=== PATIENT | female | born 1985 ===

== ENCOUNTER 2017-01-23 00:20 | Inpatient (IN) | payer BC, OTHER ==
[2017-01-23 00:56] VITALS: BMI 23.7
[2017-01-23 02:43] VITALS: O2SAT 100
[2017-01-23 02:46] LABS: BASO % 0.4 % (0.0-2.0); EOS # 0.3 K/uL (0.0-0.7); HEMATOCRIT 37.6 % (34.0-47.0); LYMPH # 1.6 K/uL (1.0-4.3); LYMPH % 19.1 % (20.0-40.0); MEAN CELL VOLUME 91.1 fl (81.0-99.0); MEAN CORPUSCULAR HEMOGLOBIN 31.6 pg (27.0-31.0); MEAN CORPUSCULAR HGB CONC 34.7 g/dL (33.0-37.0); MEAN PLATELET VOLUME 9.6 fl (7.2-11.7); MONO # 0.6 K/uL (0.0-0.8); MONO % 6.9 % (0.0-10.0); NEUT % 70.6 % (50.0-75.0); NRBC % 0.1 % (0.0-0.0); RED CELL DISTRIBUTION WIDTH 12.9 % (11.5-14.5); WHITE BLOOD COUNT 8.4 K/uL (4.8-10.8)
[2017-01-23] MEDS: Lactated Ringer's 1,000 ML IV SCH ×2 (02:51→03:15)
[2017-01-23] MEDS ORDERED: Oxytocin 30 units/LR 500ML 30 U/500 ML BAG IV ONE (03:08)
[2017-01-23] MEDS ORDERED: Lidocaine 1% Inj (20ml) ONE (03:08)
[2017-01-23] MEDS ORDERED: Fentanyl/Bupivacaine HCl 250 ML EPI ONE (03:21)
[2017-01-23] MEDS ORDERED: Lactated Ringer's 1,000 ML IV SCH (04:15)
--- NOTE | 2017-01-23 09:00 | OBADHP ---
Datetime: 01/23/2017 02:05 Admit Comment, IP Provider: 31 y/o F , 38wks GA, CODEY 02/05/17 comes to the [facility] for SROM and some CTX. as per pt SROM at 11:30pm. ctx 10 mins a part. pt denies any nausea, vomiting or bleeding - negative BV/ positive FM,LOF,CTX PNC: Dr. Fisher PNI: no issues with this so far, no abnormal labs PMH: none PSH: none POBH: 1X , term Meds: PNV Allg: none SH: no alcohol, smoking or illicit drug use ROS: unremarkable, as per HPI VS: 116/65 FHR: 130 PE: unremarkable 3/80%/-1 ROM A/P:: 31 y/o F , 38wks GA, CODEY 02/05/17 comes to the [facility] for SROM and some CTX. as per pt SROM at 11: 30pm. - Admit to L_D - Labs - Monitor VS - reassuring FHT - initiate Labor protocol Case discussed with Dr. Vidal and Dr. Fisher --- Ashwin Camacho, PGY-1 Pelvic Type - PN: Adequate Extremities - PN: Normal Abdomen - PN: Normal Back - PN: Normal Breast - PN: Normal Lungs - PN: Normal Heart - PN: Normal Thyroid - PN: Normal Neurologic - PN: Normal HEENT - PN: Normal General - PN: Normal Presentation-Admit: Vertex FHR - Baseline A Provider: 130 Amniotic Fluid Color, Provider: Clear Membranes, Provider: Ruptured Comments, ACOG Physical Exam: GBS negative Gestation - Est Wks by US: 38+ Pool Provider: Positive Nitrazine Provider: Positive Vital Signs Provider: Reviewed; Within Normal Limits IP Chief Complaint: Uterine contractions; Suspected ruptured membranes NICHD Variability Prov Fetus A: Moderate 6-25bpm NICHD Accel Fetus A IP Provider: [id number] FHR Category Provider Fetus A: Category I NICHD Decel Fetus A IP Provider: None Dilatation, Provider: 3 Effacement, Provider: 80 Station, Provider: -1 Genitourinary Exam: Normal DTRs - PN: Normal EGA AdmitDate IP: 38.1 IP Adm Impression: Term, intrauterine IP Admit Plan: Admit to unit; Initiate labor protocol
[2017-01-23] MEDS ORDERED: Oxycodone/Acetaminophen 5/325 mg Tab PO PRN ×4 (09:06→10:10)
[2017-01-23] MEDS ORDERED: Oxytocin 30 units/LR 500ML 30 U/500 ML BAG IV SCH (09:06)
[2017-01-23] MEDS ORDERED: Benzocaine/Menthol SPRAY TOP PRN ×2 (09:06→10:10)
--- NOTE | 2017-01-23 09:20 | OBDS ---
DELIVERY PERSONNEL Delivery Doctor: Ann-Marie Fisher MD Supervisor Industrial Garment: Shira Anesthesiologist: Jeramy Ascencio MD MATERNAL INFORMATION Delivery Anesthesia: Epidural Medications in Delivery: Pitocin 30 units in 500 mls Estimated Blood Loss (ml): 250ml Placenta Cultured: No Maternal Complications: None Provider Comments: delivery of live baby girl 9/9 clear fluid persistent op and laceration wit h repair LABOR SUMMARY EDC: 02/05/2017 00:00 No. Babies in Womb: 1 Attempted: No Labor Anesthesia: Epidural LABOR INFORMATION Reason for Induction: Not Applicable Onset of Labor: 01/22/2017 23:30 Oxytocin: N/A Group B Beta Strep: Negative Antibiotics # of Doses: N/A Antibiotics Time of Last Dose: N/A Steroids Given: None Reason Steroids Not Administered: Not Applicable MEMBRANES Membranes Rupture Method: Spontaneous Rupture of Membranes: 01/22/2017 23:30 Length of Rupture (hrs): 8.93 Amniotic Fluid Color: Clear Amniotic Fluid Amount: Small Amniotic Fluid Odor: Normal STAGES OF LABOR Stage 3 hrs: 0 Stage 3 min: 5 Total Time in Labor hrs: 9 Total Time in Labor min: 1 VAGINAL DELIVERY Episiotomy: None Laceration Extension: Second Degree Laceration Type: Perineal Laceration Repair: Yes Laceration Repair Note: repair of laceration with 2-0 chromic Sponge Count Correct: Yes Sharps Count Correct: Yes Count Comment: correct BABY A INFORMATION Delivery Date/Time: 01/23/2017 08:26 Method of Delivery: Vaginal Born in Route : No : N/A Forceps: N/A Vacuum Extraction: N/A Shoulder Dystocia : No SHOULDER DYSTOCIA BABY A Delivery Date/Time: 01/23/2017 08:26 PRESENTATION/POSITION BABY A Presentation: Cephalic Cephalic Presentation: Vertex Vertex Position: Left Occipital Posterior Breech Presentation: N/A PLACENTA INFORMATION BABY A Placenta Delivery Time : 01/23/2017 08:31 Placenta Method of Delivery: Spontaneous Placenta Status: Delivered SCORES BABY A Heart Rate 1 min: >100 bpm Resp Effort 1 min: Good Cry Reflex Irritability 1 min: Cough or Sneeze or Pulls Away Muscle Tone 1 min: Active Motion Color 1 min: Body [place], Extremities Blue Resuscitation Effort 1 min: N/A SCORE 1 MIN: 9 Heart Rate 5 min: >100 bpm Resp Effort 5 min: Good Cry Reflex Irritability 5 min: Cough or Sneeze or Pulls Away Muscle Tone 5 min: Active Motion Color 5 min: Body [place], Extremities Blue Resuscitation Effort 5 min: N/A SCORE 5 MIN: 9 INFORMATION BABY A Gestational Age at Delivery: 38.1 Gestational Status: Term Outcome : Liveborn Infant Condition : Stable Infant Sex: Female IDENTIFICATION/MEDS BABY A ID Band Number: [id number] ID Band Location: Left Leg; Left Arm WEIGHT/LENGTH BABY A Infant Birthweight (gms): 3245 Weight (lb): 7 Weight (oz): 2 Length Inches: 19.00 Infant Length cms: 48.3 CORD INFORMATION BABY A No. Cord Vessels: 3 Nuchal Cord : N/A Nuchal Cord Other: N/A True Knot: N/A Cord pH Baby Arterial: N/A Infant Cord pH Baby Venous: N/A Cord Blood Taken: Yes Banking/Donate Info: N/A Suction: Mouth; Nose
[2017-01-24 07:23] LABS: BASO % 0.1 % (0.0-2.0); EOS # 0.3 K/uL (0.0-0.7); EOS % 2.2 % (0.0-4.0); HEMATOCRIT 36.9 % (34.0-47.0); LYMPH # 2.4 K/uL (1.0-4.3); LYMPH % 19.3 % (20.0-40.0); MEAN CELL VOLUME 91.5 fl (81.0-99.0); MEAN CORPUSCULAR HEMOGLOBIN 31.1 pg (27.0-31.0); MEAN CORPUSCULAR HGB CONC 33.9 g/dL (33.0-37.0); MEAN PLATELET VOLUME 10.1 fl (7.2-11.7); MONO # 0.9 K/uL (0.0-0.8); NEUT # 8.7 K/uL (1.8-7.0); NEUT % 71.4 % (50.0-75.0); RED CELL DISTRIBUTION WIDTH 13.1 % (11.5-14.5); WHITE BLOOD COUNT 12.2 K/uL (4.8-10.8)
--- NOTE | 2017-01-24 11:42 | OBPPN ---
Datetime: 01/24/2017 11:35 PP Pain Prov: Within normal limits PP Pain Prov comment: No SOB, chest pains or leg pains PP Nausea Prov: Denies PP Flatus Prov: Yes PP Breasts Prov: Normal PP Lungs Prov: Normal PP Abdomen/Uterus Prov: Abnormal PP Lochia Prov: Normal PP CVA Tenderness Prov: Normal PP Extremities Prov: Normal PP C/S Incision Prov: Not Applicable PP Progress Prov: Normal PP Comments Phys Exam Prov: Breast not engorged NT; Abd soft NT fundus firm below the umb. NT Ext no calf tenderness PP Impression Prov: Normal progression PP Plan Prov: Continue present management PP Progress Note Prov: OOB and ambulation IP PP Procedures: None Vital Signs Provider PP: Reviewed
--- NOTE | 2017-01-25 07:17 | OBPPN ---
Datetime: 01/25/2017 07:08 PP Pain Prov: Within normal limits PP Pain Prov comment: No SOB, chest pains or leg pains PP Nausea Prov: Denies PP Flatus Prov: Yes PP Nausea Prov comment: voiding well PP Breasts Prov: Normal PP Lungs Prov: Normal PP Abdomen/Uterus Prov: Abnormal PP Lochia Prov: Normal PP CVA Tenderness Prov: Normal PP Extremities Prov: Normal PP C/S Incision Prov: Not Applicable PP Progress Prov: Normal PP Comments Phys Exam Prov: breast not engorged, abd soft ND fundus firm below the umb. Ext no calf tenderness PP Impression Prov: Normal progression PP Plan Prov: Discharge PP Progress Note Prov: D/C home and follow up with PMD Instructions given IP PP Procedures: None Vital Signs Provider PP: Reviewed
--- NOTE | 2017-01-25 07:21 | OBDCSUM ---
Datetime: 01/25/2017 07:16 Discharged to, Provider: Home Follow up at, Provider: Dr Fisher Disch Instr Activity: Bedrest; May be up to bathroom; May be up for meals; May Shower Disch Instr Diet: Regular Discharge Instructions, Provider: Routine instructions given Discharge Diagnosis, Provider: Term Delivered Discharge Time: 01/25/2017 07:16 Follow up in weeks, Provider: 4-6 wks Disch Referrals: None Contraception discussed, Prov: Yes Disch Activity Restrictions: No exercising; No lifting; No driving; Minimize walking; Minimize stair -climbing; No sexual activity; Nothing in vagina - [place], tampons, douche Discharge Comment, Provider: continue PNC vit Contraception after Delivery: Undecided
[2017-01-25 18:49] VITALS: BP 111/76; PULSE 66; RESP 20; TEMP 98.5
== END 2017-01-25 14:37 | disposition home or self-care (01) | DRG 775 ==
LOC: H.EROB2 00:20 → H.EROB 00:25 → H.L&D 01:44 → H.EROB2 01:50 → H.OB/GYN 10:30
PROVIDERS: ADMIT Specialist; ATTEND Specialist
PROC: 10E0XZZ Delivery of Products of Conception, External Approach (ICD-10-PCS; principal; 2017-01-23)
PROC: 0KQM0ZZ Repair Perineum Muscle, Open Approach (ICD-10-PCS; 2017-01-23)
PROC: 4A1HXCZ Monitoring of Products of Conception, Cardiac Rate, External Approach (ICD-10-PCS; 2017-01-23)
DX: O70.1 Second degree perineal laceration during delivery (principal); Z37.0 Single live birth; Z3A.38 38 weeks gestation of pregnancy